=== PATIENT | male | born 1960 | race Caucasian/White ===

== ENCOUNTER 2020-03-31 02:46 | Outpatient (CLI) | payer BC, SELFPAY ==
[2020-03-31 08:48] LABS: Hemoglobin A1C 5.2 % (<5.7)
[2020-03-31 10:13] LABS: Calculated LDL 135 mg/dL (<100); Cholesterol 208 mg/dL (<200); HDL Cholesterol 61 mg/dL (40-60); T4 6.9 ug/mL (4.7-13.3); Triglyceride 60 mg/dL (<150)
[2020-03-31 17:32] LABS: T3,Free 4.5 pg/mL (2.8-5.3)
== END 2020-03-31 03:06 ==
PROVIDERS: PCP Naturopath; Visit Provider Naturopath
DX: R79.89 Other specified abnormal findings of blood chemistry (principal); Z13.220 Encounter for screening for lipoid disorders; Z13.1 Encounter for screening for diabetes mellitus
CPT/HCPCS: 36415; 80061; 83036; 84436; 84443; 84481

== ENCOUNTER 2020-06-07 03:05 | Outpatient (CLI) | payer BC, SELFPAY ==
[2020-06-07 09:37] LABS: Calculated LDL 126 mg/dL (<100); Cholesterol 202 mg/dL (<200); HDL Cholesterol 66 mg/dL (40-60); TSH 3.65 uIU/mL (0.36-3.74); Triglyceride 54 mg/dL (<150)
== END 2020-06-07 03:06 | disposition home or self-care (01) ==
LOC: LBO 03:05
PROVIDERS: PCP Naturopath; Visit Provider Naturopath
DX: E03.9 Hypothyroidism, unspecified (principal); E78.00 Pure hypercholesterolemia, unspecified
CPT/HCPCS: 36415; 80061; 84436; 84443; 84481

== ENCOUNTER 2020-09-01 02:20 | Outpatient (CLI) | payer BC, SELFPAY ==
[2020-09-01 17:11] LABS: T4 5.6 ug/mL (4.7-13.3); TSH 4.63 uIU/mL (0.36-3.74)
[2020-09-03 16:43] LABS: T3,Free 3.9 pg/mL (2.8-5.3)
== END 2020-09-01 02:21 | disposition home or self-care (01) ==
LOC: LBO 02:21
PROVIDERS: PCP Naturopath; Visit Provider Naturopath
DX: R79.89 Other specified abnormal findings of blood chemistry (principal)
CPT/HCPCS: 36415; 84436; 84443; 84481

== ENCOUNTER 2021-03-30 03:25 | Outpatient (CLI) | payer BC, SELFPAY ==
[2021-03-30 08:29] LABS: Abs Immature Grans 0.01 10^3/uL (0.0-0.06); Absolute Basophil Count 0.03 10^3/uL (0.0-0.2); Absolute Lymphocyte Count 1.31 10^3/uL (1.2-3.4); Absolute Monocyte Count 0.32 10^3/uL (0.1-0.8); Absolute Neutrophil Count 1.34 10^3/uL (1.2-6.7); Eosinophils % 3.2; HCT 43.7 % (40.0-50.0); HGB 14.5 g/dL (13.5-17.5); Immature Grans % 0.3; Lymphocytes % 42.1; MCH 32.5 pg (27.0-33.0); MCHC 33.2 % (32.0-36.0); MPV 9.4 fL (8.0-11.0); Monocytes % 10.3; Neutrophils % 43.1; Nucleated RBC 0 %; Platelet Count 232 10^3/uL (130-400); RBC 4.46 10^6/uL (4.36-5.78); RDW 11.8 % (11.8-14.1); RDW-SD 42.8 fL; WBC 3.11 10^3/uL (4.4-10.8)
[2021-03-30 08:42] LABS: Hemoglobin A1C 5.2 % (<5.7)
[2021-03-30 09:51] LABS: Calculated LDL 163 mg/dL (<100); Cholesterol 239 mg/dL (<200); Ferritin 111 ng/mL (26-388); HDL Cholesterol 61 mg/dL (40-60); T4 7.1 ug/mL (4.7-13.3); TSH 2.23 uIU/mL (0.36-3.74); Triglyceride 79 mg/dL (<150)
[2021-03-30 18:12] LABS: T3,Free 3.4 pg/mL (2.8-5.3)
[2021-03-30 19:34] LABS: PSA, Screening 0.5 ng/mL (0.0-4.5)
[2021-04-02 00:27] LABS: Vitamin D 25 Total 57.9 ng/mL (30-100)
[2021-04-02 12:59] LABS: Testosterone, Total 647 ng/dL (240-950)
== END 2021-03-30 03:26 | disposition home or self-care (01) ==
LOC: LBO 03:25
PROVIDERS: PCP Naturopath; Visit Provider Naturopath
DX: E29.1 Testicular hypofunction (principal); R79.89 Other specified abnormal findings of blood chemistry; Z12.5 Encounter for screening for malignant neoplasm of prostate; Z13.0 Encounter for screening for diseases of the blood and blood-forming organs and certain disorders involving the immune mechanism; Z13.1 Encounter for screening for diabetes mellitus; Z13.220 Encounter for screening for lipoid disorders
CPT/HCPCS: 36415; 80061; 82306; 84153; 84402; 84403; 82728; 83036; 84436; 84443; 84481; 85025

== ENCOUNTER 2021-06-22 04:01 | Outpatient (CLI) | payer BC, SELFPAY ==
[2021-06-22 11:40] LABS: Absolute Basophil Count 0.04 10^3/uL (0.0-0.2); Absolute Eosinophil Count 0.06 10^3/uL (0.0-0.7); Absolute Lymphocyte Count 1.18 10^3/uL (1.2-3.4); Absolute Monocyte Count 0.29 10^3/uL (0.1-0.8); Absolute Neutrophil Count 1.39 10^3/uL (1.2-6.7); Basophils % 1.4; HGB 14.2 g/dL (13.5-17.5); Lymphocytes % 39.9; MCH 33.8 pg (27.0-33.0); MCHC 33.8 % (32.0-36.0); MPV 9.8 fL (8.0-11.0); Monocytes % 9.8; Neutrophils % 46.9; Nucleated RBC 0 %; Platelet Count 232 10^3/uL (130-400); RDW 11.8 % (11.8-14.1); RDW-SD 43.1 fL; WBC 2.96 10^3/uL (4.4-10.8)
[2021-06-22 11:55] LABS: Hemoglobin A1C 5.4 % (<5.7)
[2021-06-22 12:47] LABS: Calculated LDL 173 mg/dL (<100); Cholesterol 256 mg/dL (<200); HDL Cholesterol 63 mg/dL (40-60); T4 6.2 ug/mL (4.7-13.3); Triglyceride 101 mg/dL (<150)
[2021-06-22 20:42] LABS: T3,Free 3.9 pg/mL (2.8-5.3)
[2021-06-22 21:43] LABS: Ferritin 66 ng/mL (22-322)
[2021-06-25 01:56] LABS: Vitamin D 25 Total 69.9 ng/mL (30-100)
[2021-06-30 09:26] LABS: Testosterone, Total 727 ng/dL (240-950)
== END 2021-06-22 04:02 | disposition home or self-care (01) ==
LOC: LBO 04:01
PROVIDERS: PCP Naturopath; Visit Provider Naturopath
DX: R79.89 Other specified abnormal findings of blood chemistry (principal); Z13.1 Encounter for screening for diabetes mellitus; Z13.220 Encounter for screening for lipoid disorders; E29.1 Testicular hypofunction; Z13.0 Encounter for screening for diseases of the blood and blood-forming organs and certain disorders involving the immune mechanism; Z12.5 Encounter for screening for malignant neoplasm of prostate
CPT/HCPCS: 36415; 80061; 82306; 84153; 84402; 84403; 82728; 83036; 84436; 84443; 84481; 85025

== ENCOUNTER 2022-03-04 07:41 | Day surgery (SDC) | payer BC, SELFPAY ==
--- NOTE | 2022-03-04 07:04 | COLE_ITS ---
Date of service: 03/04/22 Time of Service: 08:59 Colonoscopy Report Date of procedure: 03/04/22 Pre-op diagnosis general: screening Post-op diagnosis procedure note: other (mild diverticulosis) Procedure: Colonoscopy Surgeon: Dulce Enriquez Anesthesia Type: General:No Airway Estimated blood loss (mL): 0 Pathology: none sent Complications: None Disposition: same day Indications: ?The patient? is a pleasant? 61-year-old male who is here to discuss another screening colonoscopy. ? HIs last colonoscopy he thinks was in 2016 at [facility].? He denies any changes in bowel habits, melena, hematochezia, unintentional weight loss. He has a family history of colon cancer in his maternal Grandfather.? The procedure and risks were discussed.? The prep was reviewed in detail.? Risks, benefits and complications have been reviewed. Complications include but are not limited to bleeding, pain, perforation, missed small lesion/polyp, sore throat, aspiration and adverse reaction to the medications. Questions were entertained and answered to their satisfaction and they wished to proceed. No guarantees were given or implied Prep: Miralax/Dulcolax Procedure Start Time: 59 Procedure End Time: : Retraction Time: 10 minutes Findings: mild sigmoid diverticulosis Procedure Description: After informed consent was obtained the patient was taken to the procedure room and placed in a left decubitous position. Monitors were applied and a time out was done. The patients name, date of , procedure, allergies to medications and metal in their body was reviewed. The patient was then sedated. Once sedated and comfortable a rectal exam was done. External exam was normal. Internal exam revealed a normal sphincter tone and no palpable masses. The prostate felt normal. The scope was then introduced and retro-flexed. No internal hemorrhoids, polyps or masses were identified on retro-flexion. The scope was then advanced to the cecum without difficulty. The ileocecal vlave and appendiceal orifice were identified. The prep was adequate. The scope was then slowly retracted over 10 minutes back into the rectum. There were no polyps. There was mild sigmoid diverticulosis noted. The scope was removed and the patient was woken up and taken back to Same day surgery in stable condition. The patient tolerated the procedure well and there were no immediate complications. Follow up: The patient should follow up in 10 years unless they develop changes in bowel habits or other new gastrointestinal complaints.
--- NOTE | 2022-03-04 07:06 | PDOC.DSDIS_ITS ---
Date of service: 03/04/22 Time of Service: 08:59 Discharge Plan Disposition Patient Disposition: HOME Condition: Good Discharge Details Reason For Visit: colonoscopy Attending Provider: Dulce Enriquez Primary Care Provider: Trace Rockwell Home Meds and New Rx's Prescriptions: Continued vitamin B complex [B Complex-Vitamin B12] Tablet 1 tab PO DAILY ascorbic acid (vitamin C) 1,000 mg tablet 1 g PO BID resveratrol 250 mg capsule PO vitamin E mixed 400 unit capsule 400 unit PO DHEA 50 mg capsule 50 mg PO DAILY zinc 50 mg tablet 50 mg PO DAILY omega-3 fatty acids 1,000 mg capsule 1,000 mg PO DAILY [place]'s wort 300 mg capsule 300 mg PO DAILY alpha lipoic acid 200 mg capsule 200 mg PO DAILY coQ10 (ubiquinol) 100 mg capsule 100 mg PO BID levothyroxine 50 mcg capsule 75 mcg PO DAILY Discontinued polyethylene glycol 3350 17 gram/dose powder 238 g PO ONCE Qty: 238 0RF Rx Instructions: take per colonoscopy instructions bisacodyl [Dulcolax (bisacodyl)] 5 mg tablet,delayed release (DR/EC) 5 mg PO ONCE Qty: 4 0RF Rx Instructions: take per colonoscopy instructions Discharge Instructions Instructions: Diverticulosis (DC) Additional Instructions: Findings: mild diverticulosis Follow up: 10 years Please call if you develop: fevers >101.5 Nausea or Vomiting Abdominal pain that is not transient Rectal bleeding that is more then a tbsp A hard abdomen and inability to pass gas DAY SURGERY UNIT POST ENDOSCOPY INSTRUCTIONS Instructions for everyone who is given Anesthesia: For your safety, please do the following for the next 24 Hours: a. Do not drive or operate dangerous equipment b. Do not drink alcohol beverages or use any recreational drugs for the first 24 hours or while taking pain medications. The medications in your body may have a reaction that can be dangerous. c. Do not make any important decisions or sign any important papers 1. Generally there are no restrictions on your activity after a day or so has gone by, but you may feel a bit fatigued for a few days. 2. After you arrive home you may have a light meal and return to a normal diet as you can tolerate it without feeling sick to your stomach. 3. After surgery, you may feel pain or discomfort. This should be only transient, but if it persists please contact your doctor. 4. If there are any questions regarding the findings of your procedure, please feel free to contact your doctor. 6. If you are unable to contact your doctor with a problem, contact the hospital at [phone]. 7. Continue all your regular medications unless directed otherwise. I understand the above instructions and have no questions. Signature of Patient or Responsible Adult Escort Date/Time Name of Responsible Adult Escort Signature of Nurse Date/Time Activity:: Activity as Tolerated Diet:: As Tolerated Discharge Orders Discharge Orders: Discharge Order (Routine); Ordered 03/04/22 Ordered By: Dulce Enriquez
[2022-03-04 07:45] VITALS: BP 127/79; PULSE 51; RESP 16; TEMP 36.3; O2SAT 100
[2022-03-04] MEDS: Lactated Ringers 1,000 ML 80 ML IV (08:15)
--- NOTE | 2022-03-04 08:23 | W.ANESPRE ---
General Info Date of Service Date Performed: 03/04/22 Height: 5 ft 8 in Weight: 62.5 kg Body Mass Index (BMI): 20.9 Surgical Procedure: Operation Date: 03/04/22 09:05 Proposed Procedure Side Surgeon p Colonoscopy Dulce Enriquez MD Meds Allergies and Home Medications Allergies Allergy/AdvReac Type Severity Reaction Status Date / Time No Known Allergies Allergy Verified 03/04/22 07:53 Home Medication Medication Instructions Recorded [place]'s wort 300 mg capsule 300 mg PO DAILY 06/07/21 alpha lipoic acid 200 mg capsule 200 mg PO DAILY 06/07/21 ascorbic acid (vitamin C) 1,000 mg 1 g PO BID 06/07/21 tablet coQ10 (ubiquinol) 100 mg capsule 100 mg PO BID 06/07/21 omega-3 fatty acids 1,000 mg 1,000 mg PO DAILY 06/07/21 capsule prasterone (dhea) 50 mg capsule 50 mg PO DAILY 06/07/21 (DHEA) resveratrol 250 mg capsule mg PO 06/07/21 vitamin B complex (B 1 tab PO DAILY 06/07/21 Complex-Vitamin B12 tablet) vitamin E mixed 400 unit capsule 400 unit PO 06/07/21 zinc 50 mg tablet 50 mg PO DAILY 06/07/21 bisacodyl 5 mg tablet,delayed 5 mg PO ONCE colonscopy bowel prep 02/15/22 release (Dulcolax (bisacodyl)) #4 tabs levothyroxine 50 mcg capsule 75 mcg PO DAILY 02/15/22 polyethylene glycol 3350 17 238 g PO ONCE colonoscopy prep 02/15/22 gram/dose oral powder #238 grams Current Visit Medications: Current Medications Generic Name Dose Route Start Last Admin Trade Name Abundioq PRN Reason Stop Dose Admin Hyoscyamine Sulfate 0.125 mg 03/04/22 07:06 Hyoscyamine 0.125 Mg Sl/Oral/Chew SL DIRECTED PRN Ringer's Solution 1,000 mls @ 80 mls/hr 03/04/22 06:00 03/04/22 08:15 IV 03/31/22 23:59 80 mls/hr INFUSION LACEY Administration IV Miscellaneous Supplies 1 each 03/04/22 06:00 Iv Access IV 03/31/22 23:59 DIRECTED LACEY Ondansetron HCl 4 mg 03/04/22 07:06 Ondansetron 4 Mg/2 Ml Vial IVP Q4H PRN PRN Nausea / Vomiting Sodium Chloride 0 ml 03/04/22 06:00 Normal Saline Flush 10 Ml Syr IV 03/31/22 23:59 PRN PRN Sodium Chloride 0 ml 03/04/22 06:00 Normal Saline 10 Ml Vial IJ 03/31/22 23:59 DIRECTED PRN Sterile Water 0 ml 03/04/22 06:00 Water,Injection,Sterile 10 Ml Vial IJ 03/31/22 23:59 DIRECTED PRN PFSH Active Problems Active Problems: Problem Status Onset Code Screening for colon cancer Z12.11 Medical History Medical History Bradycardia Depression Hypercholesterolemia Hypothyroidism Surgical History Surgical History S/P colonoscopy (~2015) nl per patient Tobacco Smoking/Tobacco Use Status: Never Alcohol Alcohol Intake: current Alcohol intake frequency: 0-2 drinks per day Alcohol type: beer Substance Use Substance use: Never Substance use type: does not use Vital Signs and Lab Results Vital Signs Most Recent Vital Signs in EMR: Most Recent Vital Signs Temp Pulse Resp BP Pulse Ox 36.3 C L 51 L 16 127/79 100 03/04/22 07:45 03/04/22 07:45 03/04/22 07:45 03/04/22 07:45 03/04/22 07:45 Lab Results Blood Type / Crossmatch: No Data to Display Complete Blood Count: No Data to Display Complete Metabolic Panel: No Data to Display Liver Function Panel: No Data to Display Coagulation Panel: No Data to Display Cardiac Panel: No Data to Display Arterial Blood Gas: No Data to Display Venous Blood Gas: No Data to Display Pancreas Panel: No Data to Display Thyroid Panel: No Data to Display Infectious Disease: No Data to Display Blood Cultures: No Data to Display Toxicology Panel: No Data to Display Anesthesia Assessment and Plan Anesthesia History Personal History: No History of Anesthesia Complications Family History: No Family History of Anesthesia Complications Exercise Tolerance Exercise Tolerance: Metabolic Equivalents>4 Pertinent Negatives Pertinent Negatives: No Symptoms of GERD, No Major Cardiovascular Symptoms or Complaints, No Major Pulmonary Symptoms or Complaints and No History of CVA/TIA Cardiac & Pulmonary Exam Cardiac Exam: Normal S1/S2 Heart Sounds Pulmonary Exam: Clear Bilateral Breath Sounds Implantable Cardiac Device Does patient have a Pacemaker or an ICD?: No Airway Exam Known Difficult Airway: No Mallampati Class: 1 Mouth Opening: Normal (> 3cm) Thyromental Distance: Greater than 3 cm Neck Range of Motion: Full ROM Neck Circumference: Normal Teeth Condition: Normal Dentition ASA Classification ASA Score: ASA 2 Emergency Case?: No NPO Status NPO Status: NPO Clears >2 hours, Solids >8 hours Anesthesia Plan Resuscitation Status: Full Code Anesthesia Technique: General Anesthesia Airway Planned: Natural Airway Monitors Used: Standard Monitors
[2022-03-04 08:52] VITALS: BMI 20.9
[2022-03-04 09:28] VITALS: BP 104/82; PULSE 54; RESP 16; TEMP 36.2; O2SAT 98
--- NOTE | 2022-03-04 09:43 | W.ANESPOSTOP ---
Postoperative Evaluation Date, Time and Location Date Performed: 03/04/22 Time Performed: :28 Patient Location: Day Surgery Unit Vital Signs Most Recent Imported Vital Signs: Most Recent Vital Signs Temp Pulse Resp BP Pulse Ox 36.2 C L 54 L 16 104/82 98 03/04/22 09:28 03/04/22 09:28 03/04/22 09:28 03/04/22 09:28 03/04/22 09:28 Assessment Mental Status: Awake (Alert & Oriented to Patient Baseline) Airway and Respiratory Function: Patent airway with normal (patient baseline) respiratory exam Cardiovascular Function: Hemodynamically Stable Hydration Status: Adequately Hydrated Nausea & Vomiting: No Nausea or Vomiting Pain: Pt. Denies Any Pain Peripheral Nerve Block: Patient did not receive a nerve block
[2022-03-04] MEDS: Hyoscyamine 0.125 MG SL/ORAL/CHEW SL (09:50)
[2022-03-04 09:56] VITALS: BP 114/79; PULSE 48; RESP 18; TEMP 36.4; O2SAT 98
== END 2022-03-04 10:25 | disposition home or self-care (01) ==
PROVIDERS: PCP Naturopath; Visit Provider Surgery
PROC: 0DJD8ZZ Inspection of Lower Intestinal Tract, Via Natural or Artificial Opening Endoscopic (ICD-10-PCS; CPT 45378; principal; 2022-03-04 09:00)
DX: Z12.11 Encounter for screening for malignant neoplasm of colon (principal); K57.30 Diverticulosis of large intestine without perforation or abscess without bleeding; E03.9 Hypothyroidism, unspecified
CPT/HCPCS: 45378; J3490

== ENCOUNTER 2023-09-24 05:09 | Outpatient (CLI) | payer BC, SELFPAY ==
[2023-09-24 16:29] LABS: Abs Immature Grans 0.01 10^3/uL (0.0-0.06); Absolute Basophil Count 0.04 10^3/uL (0.0-0.2); Absolute Eosinophil Count 0.08 10^3/uL (0.0-0.7); Absolute Lymphocyte Count 1.36 10^3/uL (1.2-3.4); Absolute Monocyte Count 0.38 10^3/uL (0.1-0.8); Basophils % 0.9 %; Eosinophils % 1.8 %; HCT 41.8 % (40.0-50.0); HGB 14.3 g/dL (13.5-17.5); Immature Grans % 0.2 %; Lymphocytes % 31.1 %; MCH 33.4 pg (27.0-33.0); MCHC 34.2 % (32.0-36.0); MCV 98 fL (80-95); MPV 9.1 fL (8.0-11.0); Monocytes % 8.7 %; Neutrophils % 57.3 %; Platelet Count 244 10^3/uL (130-400); RBC 4.28 10^6/uL (4.36-5.78); RDW 11.5 % (11.8-14.1); RDW-SD 41.5 fL; WBC 4.37 10^3/uL (4.4-10.8)
[2023-09-29 13:50] LABS: G6PD Enzyme Activity 8.3 U/g Hb (8.0 - 11.9)
== END 2023-09-24 05:10 | disposition home or self-care (01) ==
LOC: LBO 05:10
PROVIDERS: PCP Naturopath; Visit Provider Naturopath
DX: M06.4 Inflammatory polyarthropathy (principal); A69.29 Other conditions associated with Lyme disease; B37.0 Candidal stomatitis; B35.4 Tinea corporis; R45.4 Irritability and anger; E03.9 Hypothyroidism, unspecified; E78.00 Pure hypercholesterolemia, unspecified
CPT/HCPCS: 36415; 82955; 85025

== ENCOUNTER 2023-12-02 02:56 | Outpatient (CLI) | payer BC, SELFPAY ==
[2023-12-02 11:34] LABS: Calculated LDL 166 mg/dL (<100); Cholesterol 255 mg/dL (<200); FREE T4 0.87 ng/dL (0.76-1.46); HDL Cholesterol 68 mg/dL (40-60); Magnesium 2.3 mg/dL (1.8-2.4); Triglyceride 108 mg/dL (<150)
[2023-12-02 17:37] LABS: T3,Free 4.1 pg/mL (2.8-5.3)
[2023-12-03 08:34] LABS: Homocysteine 8.5 umol/L (5.0-13.9)
[2023-12-04 11:16] LABS: Apolipoprotein A1, S 168 mg/dL (>=120); Apolipoprotein B, S 125 mg/dL (See Comment); Apolipoprotein B/A 1 ratio 0.7 (See Comment)
[2023-12-04 12:21] LABS: Lipoprotein (a) 221 nmol/L (<75)
[2023-12-11 12:00] LABS: T3 (Triiodothyronine) Reverse 12 ng/dL (10-24)
== END 2023-12-02 02:57 | disposition home or self-care (01) ==
LOC: LBO 02:56
PROVIDERS: PCP Naturopath; Visit Provider Naturopath
DX: M06.4 Inflammatory polyarthropathy (principal); B35.4 Tinea corporis; E03.9 Hypothyroidism, unspecified; Z13.6 Encounter for screening for cardiovascular disorders; M76.61 Achilles tendinitis, right leg; A69.29 Other conditions associated with Lyme disease
CPT/HCPCS: 36415; 80061; 82172; 83090; 83695; 83735; 84439; 84481; 84482

== ENCOUNTER 2024-02-10 09:02 | Outpatient (CLI) | payer BC, SELFPAY ==
[2024-02-10 09:42] LABS: Calculated LDL 177 mg/dL (<100); Cholesterol 257 mg/dL (<200); HDL Cholesterol 63 mg/dL (40-60); Magnesium 2.3 mg/dL (1.8-2.4); Triglyceride 85 mg/dL (<150)
[2024-02-10 17:52] LABS: T3,Free 3.9 pg/mL (2.8-5.3)
[2024-02-10 18:36] LABS: Estradiol 37 pg/mL (<40); Progesterone 0.8 ng/mL (0.3-1.2)
[2024-02-12 09:34] LABS: Homocysteine 10.4 umol/L (5.0-13.9)
[2024-02-12 14:06] LABS: Apolipoprotein A1, S 159 mg/dL (>=120); Apolipoprotein B, S 137 mg/dL (See Comment); Apolipoprotein B/A 1 ratio 0.9 (See Comment)
[2024-02-13 15:46] LABS: T3 (Triiodothyronine) Reverse 14 ng/dL (10-24)
[2024-02-14 12:51] LABS: Testosterone, Free 13.5 ng/dL (3.67-13.9); Testosterone, Total 703 ng/dL (240-950)
[2024-02-16 13:03] LABS: Dihydrotestosterone, Serum 442 pg/mL (112-955)
[2024-02-16 13:14] LABS: Dehydroepiandrosterone (DHEA) 4.6 ng/mL (<5.0)
== END 2024-02-10 09:03 | disposition home or self-care (01) ==
LOC: LBO 09:02
PROVIDERS: PCP Naturopath; Visit Provider Naturopath
DX: L21.9 Seborrheic dermatitis, unspecified (principal); M06.4 Inflammatory polyarthropathy; B35.4 Tinea corporis; R45.4 Irritability and anger; E03.9 Hypothyroidism, unspecified; G47.09 Other insomnia; E78.00 Pure hypercholesterolemia, unspecified; B37.0 Candidal stomatitis
CPT/HCPCS: 36415; 80061; 82172; 83090; 84402; 84403; 82626; 82642; 82670; 83735; 84144; 84439; 84481; 84482; 85660

== ENCOUNTER 2024-03-29 12:56 | Outpatient (CLI) | payer BC, SELFPAY ==
[2024-03-29 11:42] LABS: Magnesium 2.2 mg/dL (1.8-2.4)
[2024-03-29 11:54] LABS: Calculated LDL 130 mg/dL (<100); Cholesterol 226 mg/dL (<200); HDL Cholesterol 55 mg/dL (40-60); Triglyceride 208 mg/dL (<150)
[2024-03-29 17:26] LABS: T3,Free 4.2 pg/mL (2.8-5.3)
[2024-03-29 17:47] LABS: Homocysteine 7.8 umol/L (5.0-13.9)
[2024-03-31 12:11] LABS: DHEA Sulfate 1136 ug/dL (49-362)
[2024-03-31 15:27] LABS: Apolipoprotein A1, S 153 mg/dL (>=120); Apolipoprotein B, S 120 mg/dL (See Comment); Apolipoprotein B/A 1 ratio 0.8 (See Comment); Lipoprotein (a) 95 nmol/L (<75)
[2024-04-02 14:39] LABS: Testosterone, Free 12.6 ng/dL (3.67-13.9); Testosterone, Total 633 ng/dL (240-950)
== END 2024-03-29 12:57 | disposition home or self-care (01) ==
LOC: LBO 12:56
PROVIDERS: PCP Naturopath; Visit Provider Naturopath
DX: A69.29 Other conditions associated with Lyme disease (principal); M06.4 Inflammatory polyarthropathy; E03.9 Hypothyroidism, unspecified; E78.00 Pure hypercholesterolemia, unspecified; R45.4 Irritability and anger; B37.0 Candidal stomatitis; B35.4 Tinea corporis; Z13.6 Encounter for screening for cardiovascular disorders; L21.9 Seborrheic dermatitis, unspecified; G47.09 Other insomnia; M76.61 Achilles tendinitis, right leg
CPT/HCPCS: 36415; 80061; 82172; 82627; 83090; 83695; 84402; 84403; 83735; 84439; 84481

== ENCOUNTER 2024-04-29 11:26 | Outpatient (CLI) | payer BC, SELFPAY ==
[2024-05-04 11:57] LABS: Dehydroepiandrosterone (DHEA) 1.6 ng/mL (<5.0)
== END 2024-04-29 11:27 | disposition home or self-care (01) ==
LOC: LBO 11:26
PROVIDERS: PCP Naturopath; Visit Provider Naturopath
DX: L21.9 Seborrheic dermatitis, unspecified (principal); M06.4 Inflammatory polyarthropathy; R45.4 Irritability and anger; G47.09 Other insomnia; E78.00 Pure hypercholesterolemia, unspecified; B35.4 Tinea corporis; E03.9 Hypothyroidism, unspecified; R89.1 Abnormal level of hormones in specimens from other organs, systems and tissues
CPT/HCPCS: 36415; 82626

== ENCOUNTER 2024-05-20 03:52 | Outpatient (CLI) | payer BC, SELFPAY ==
[2024-05-20 09:14] LABS: Calculated LDL 174 mg/dL (<100); Cholesterol 260 mg/dL (<200); FREE T4 1.23 ng/dL (0.76-1.46); HDL Cholesterol 67 mg/dL (40-60); Magnesium 2.2 mg/dL (1.8-2.4); Triglyceride 99 mg/dL (<150)
[2024-05-20 17:56] LABS: T3,Free 4.9 pg/mL (2.8-5.3)
[2024-05-20 18:44] LABS: Estradiol 51 pg/mL (<40)
[2024-05-21 09:28] LABS: DHEA Sulfate 803 ug/dL (49-362)
[2024-05-22 11:42] LABS: Lipoprotein (a) 171 nmol/L (<75)
[2024-05-22 14:49] LABS: Apolipoprotein A1, S 171 mg/dL (>=120); Apolipoprotein B, S 130 mg/dL (See Comment); Apolipoprotein B/A 1 ratio 0.8 (See Comment)
[2024-05-25 12:13] LABS: T3 (Triiodothyronine) Reverse 18 ng/dL (10-24)
[2024-05-25 14:20] LABS: Dihydrotestosterone, Serum 556 pg/mL (112-955)
[2024-05-28 16:38] LABS: Testosterone, Free 15.2 ng/dL (3.67-13.9); Testosterone, Total 942 ng/dL (240-950)
== END 2024-05-20 03:53 | disposition home or self-care (01) ==
PROVIDERS: PCP Naturopath; Visit Provider Naturopath
DX: L21.9 Seborrheic dermatitis, unspecified (principal); M06.4 Inflammatory polyarthropathy; B35.4 Tinea corporis; R45.4 Irritability and anger; E03.9 Hypothyroidism, unspecified; G47.09 Other insomnia; E78.00 Pure hypercholesterolemia, unspecified; A69.29 Other conditions associated with Lyme disease; Z13.6 Encounter for screening for cardiovascular disorders; B36.0 Pityriasis versicolor
CPT/HCPCS: 36415; 80061; 82172; 82627; 83090; 83695; 84402; 84403; 82642; 82670; 83735; 84144; 84439; 84481; 84482

== ENCOUNTER 2024-06-10 03:08 | Outpatient (CLI) | payer BC, SELFPAY ==
[2024-06-15 17:17] LABS: Dehydroepiandrosterone (DHEA) 4.4 ng/mL (<5.0)
== END 2024-06-10 03:09 | disposition home or self-care (01) ==
LOC: LBO 03:08
PROVIDERS: PCP Naturopath; Visit Provider Naturopath
DX: L21.9 Seborrheic dermatitis, unspecified (principal); M06.4 Inflammatory polyarthropathy; R45.4 Irritability and anger; G47.09 Other insomnia; E78.00 Pure hypercholesterolemia, unspecified; B35.4 Tinea corporis; E03.9 Hypothyroidism, unspecified; R89.1 Abnormal level of hormones in specimens from other organs, systems and tissues
CPT/HCPCS: 36415; 82626

== ENCOUNTER 2024-07-01 02:59 | Outpatient (CLI) | payer BC, SELFPAY ==
[2024-07-06 17:12] LABS: Dehydroepiandrosterone (DHEA) 2.9 ng/mL (<5.0)
== END 2024-07-01 03:00 | disposition home or self-care (01) ==
PROVIDERS: PCP Naturopath; Visit Provider Naturopath
DX: L21.9 Seborrheic dermatitis, unspecified (principal); M06.4 Inflammatory polyarthropathy; R45.4 Irritability and anger; G47.09 Other insomnia; E78.00 Pure hypercholesterolemia, unspecified; B35.4 Tinea corporis; E03.9 Hypothyroidism, unspecified; R89.1 Abnormal level of hormones in specimens from other organs, systems and tissues
CPT/HCPCS: 36415; 82626

== ENCOUNTER 2024-09-10 08:20 | Outpatient (CLI) | payer BC, SELFPAY ==
[2024-09-10 09:26] LABS: FREE T4 1.04 ng/dL (0.76-1.46)
[2024-09-10 18:12] LABS: T3,Free 4.1 pg/mL (2.8-5.3)
[2024-09-13 09:48] LABS: DHEA Sulfate 714 ug/dL (49-362)
[2024-09-13 10:02] LABS: Homocysteine 10.6 umol/L (5.0-13.9)
[2024-09-14 20:43] LABS: Iodine, S 70 ng/mL (40-92)
[2024-09-15 11:59] LABS: Dihydrotestosterone, Serum 438 pg/mL (112-955)
[2024-09-16 11:05] LABS: T3 (Triiodothyronine) Reverse 14 ng/dL (10-24)
[2024-09-24 10:41] LABS: Testosterone, Free 11.3 ng/dL (3.67-13.9); Testosterone, Total 814 ng/dL (240-950)
== END 2024-09-10 08:21 | disposition home or self-care (01) ==
LOC: LBO 08:20
PROVIDERS: PCP Naturopath; Visit Provider Naturopath
DX: F33.0 Major depressive disorder, recurrent, mild (principal); E78.00 Pure hypercholesterolemia, unspecified; R79.89 Other specified abnormal findings of blood chemistry; L21.9 Seborrheic dermatitis, unspecified; B35.4 Tinea corporis; E03.9 Hypothyroidism, unspecified; R89.1 Abnormal level of hormones in specimens from other organs, systems and tissues; G47.09 Other insomnia; Z13.6 Encounter for screening for cardiovascular disorders; G47.9 Sleep disorder, unspecified; M06.4 Inflammatory polyarthropathy; R45.4 Irritability and anger; B37.0 Candidal stomatitis
CPT/HCPCS: 36415; 82627; 83090; 84402; 84403; 82190; 82642; 84439; 84481; 84482

== ENCOUNTER 2024-12-10 00:43 | Outpatient (CLI) | payer BC, SELFPAY | END 2024-12-10 00:44 | disposition home or self-care (01) | LOC: LBO 00:43 | PROVIDERS: PCP Naturopath; Visit Provider Naturopath | DX: F33.0 Major depressive disorder, recurrent, mild (principal); E78.00 Pure hypercholesterolemia, unspecified; R79.89 Other specified abnormal findings of blood chemistry; L21.9 Seborrheic dermatitis, unspecified; B35.4 Tinea corporis; E03.9 Hypothyroidism, unspecified; R89.1 Abnormal level of hormones in specimens from other organs, systems and tissues; G47.09 Other insomnia; Z13.6 Encounter for screening for cardiovascular disorders; G47.9 Sleep disorder, unspecified; M06.4 Inflammatory polyarthropathy; R45.4 Irritability and anger; B37.0 Candidal stomatitis | CPT/HCPCS: 36415; 82627 ==

== ENCOUNTER 2025-01-13 08:37 | Outpatient (CLI) | payer BC, SELFPAY ==
[2025-01-13 17:32] LABS: T3,Free 3.9 pg/mL (2.8-5.3)
[2025-01-14 22:41] LABS: Iodine, S 62 ng/mL (40-92)
[2025-01-18 14:47] LABS: T3 (Triiodothyronine) Reverse 17 ng/dL (10-24)
[2025-01-20 23:30] LABS: Testosterone, Free 51.3 pg/mL (35.0-155.0)
[2025-01-21 14:39] LABS: Dihydrotestosterone, Serum 456 pg/mL (112-955)
== END 2025-01-13 08:38 | disposition home or self-care (01) ==
LOC: LBO 08:37
PROVIDERS: PCP Naturopath; Visit Provider Naturopath
DX: F33.0 Major depressive disorder, recurrent, mild (principal); E78.00 Pure hypercholesterolemia, unspecified; R79.89 Other specified abnormal findings of blood chemistry; L21.9 Seborrheic dermatitis, unspecified; B35.4 Tinea corporis; E03.9 Hypothyroidism, unspecified; R89.1 Abnormal level of hormones in specimens from other organs, systems and tissues; B37.0 Candidal stomatitis; G47.9 Sleep disorder, unspecified; M06.4 Inflammatory polyarthropathy; R45.4 Irritability and anger; Z13.6 Encounter for screening for cardiovascular disorders
CPT/HCPCS: 36415; 82627; 84402; 84403; 82190; 82642; 84439; 84481; 84482

== ENCOUNTER 2025-03-31 08:17 | Outpatient (CLI) | payer BC, SELFPAY ==
[2025-03-31 18:09] LABS: T3,Free 4.6 pg/mL (2.8-5.3)
[2025-04-01 20:43] LABS: Iodine, S 64 ng/mL (40-92)
[2025-04-06 09:32] LABS: T3 (Triiodothyronine) Reverse 17 ng/dL (10-24)
== END 2025-03-31 08:18 | disposition home or self-care (01) ==
LOC: LBO 08:17
PROVIDERS: PCP Naturopath; Visit Provider Naturopath
DX: F33.0 Major depressive disorder, recurrent, mild (principal); E78.00 Pure hypercholesterolemia, unspecified; R79.89 Other specified abnormal findings of blood chemistry; L21.9 Seborrheic dermatitis, unspecified; B35.4 Tinea corporis; E03.9 Hypothyroidism, unspecified; R89.1 Abnormal level of hormones in specimens from other organs, systems and tissues; G47.09 Other insomnia; Z13.6 Encounter for screening for cardiovascular disorders; G47.9 Sleep disorder, unspecified; M06.4 Inflammatory polyarthropathy; R45.4 Irritability and anger; B37.0 Candidal stomatitis
CPT/HCPCS: 36415; 82627; 83090; 82190; 84439; 84481; 84482